=== PATIENT | male | born 1990 | race Caucasian/White ===

== ENCOUNTER 2017-07-19 15:49 | Inpatient (IN) ==
[2017-07-19] MEDS ORDERED: NS 1,000 ML IV ONE ×2 (16:09→20:15)
[2017-07-19 16:17] LABS: MANUAL DIFF NEEDED? NO
[2017-07-19 16:23] LABS: BASO% 0.5 % (0.0-0.8); EOS% 2.3 % (0.0-10.0); HEMATOCRIT 45.2 % (42.0-52.0); HEMOGLOBIN 16.2 g/dL (14.0-18.0); IMM GRAN# 0.07 X1000 (0.0-0.04); IMM GRAN% 0.5 % (0.0-0.5); LYMPH# 2.47 X1000 (1.2-3.4); LYMPH% 18.6 % (20.5-51.1); MCHC 35.8 g/dL (33-37); MCV 92.1 FL (81-99); MONO# 1.28 X1000 (0.11-0.59); MONO% 9.7 % (1.7-9.3); MPV 11.4 FL (7.4-10.4); NEUT% 68.4 % (42.2-75.2); PLT 244 X1000 (130-400); RBC 4.91 XMIL (4.7-6.1)
[2017-07-19 16:45] LABS: AGAP 17; ALBUMIN 4.4 g/dL (3.5-5.0); ALKALINE PHOSPHATASE 96 U/L (32-122); BUN 13 mg/dL (8-22); CHLORIDE 101 mmol/L (98-107); COSMO 280; GOT 24 U/L (10-34); GPT 32 U/L (10-44); POTASSIUM 3.2 mmol/L (3.5-5.1); SODIUM 140 mmol/L (136-145); TCO2 22 mmol/L (25-35); TOTAL BILIRUBIN 1.46 mg/dL (0.20-1.00); TOTAL PROTEIN 6.9 g/dL (6.3-8.3)
[2017-07-19 16:46] LABS: ACETAMINOPHEN < 1.2 ug/mL (10-30)
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
[2017-07-19] MEDS ORDERED: NARCAN IV ONE (17:20)
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
[2017-07-19 18:22] LABS: BILIRUBIN URINE NEGATIVE (NEGATIVE); BLOOD URINE NEGATIVE (NEGATIVE); COLOR YELLOW; GLUCOSE URINE NEGATIVE (NEGATIVE); LEUKOCYTES URINE NEGATIVE (NEGATIVE); NITRITE URINE NEGATIVE (NEGATIVE); PROTEIN URINE 30 mg/dL (NEGATIVE); SP GRAVITY URINE 1.024; TURBIDITY URINE CLEAR (CLEAR); URINE CULTURE NEEDED? NO; URINE MICRO REVIEW NEEDED? NO; URINE SOURCE CLEAN CATCH; UROBILINOGEN URINE 4 mg/dL (NORMAL)
[2017-07-19 18:24] LABS: UR EPITHELIAL CELLS <10 /HPF (<10); URINE BACTERIA NEGATIVE /HPF; URINE RBC <10 /HPF (<10); URINE WBC <10 /HPF (<10)
[2017-07-19 18:51] LABS: UR AMPHETAMINES MT PRESUMPTIVE POS (NONE DETECT); UR BENZODIAZ MT PRESUMPTIVE POS (NONE DETECT); UR CANNABIS MEDTOX PRESUMPTIVE POS (NONE DETECT)
[2017-07-19 18:52] LABS: UR BARBITUATES MT NONE DETECTED (NONE DETECT); UR COCAINE MT NONE DETECTED (NONE DETECT); UR METHADONE MEDTOX NONE DETECTED (NONE DETECT); UR OPIATES MT NONE DETECTED (NONE DETECT); UR OXYCODONE MEDTOX NONE DETECTED (NONE DETECT); UR PCP MEDTOX NONE DETECTED (NONE DETECT)
[2017-07-19] MEDS ORDERED: ZOFRAN IV PRN (20:15)
[2017-07-19] MEDS ORDERED: TYLENOL PO PRN (20:15)
[2017-07-19] MEDS ORDERED: HALDOL IV PRN (20:57)
[2017-07-19] MEDS ORDERED: TORADOL IV PRN (20:59)
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
[2017-07-19] MEDS: POTASSIUM CHLORIDE 20 MEQ/SWI 20 MEQ/100 ML IVPB IV SCH (22:04)
[2017-07-20] MEDS: POTASSIUM CHLORIDE 20 MEQ/SWI 20 MEQ/100 ML IVPB IV SCH (00:30)
[2017-07-20 05:15] LABS: HEMOGLOBIN 15.8 g/dL (14.0-18.0); MCH 33.4 PG (27-31); MCHC 34.3 g/dL (33-37); MCV 97.3 FL (81-99); MPV 11.3 FL (7.4-10.4); RBC 4.73 XMIL (4.7-6.1)
[2017-07-20 06:29] LABS: AGAP 13; BUN 12 mg/dL (8-22); CALCIUM 8.5 mg/dL (8.8-10.2); CHLORIDE 105 mmol/L (98-107); COSMO 276; POTASSIUM 4.4 mmol/L (3.5-5.1); SODIUM 139 mmol/L (136-145); TCO2 21 mmol/L (25-35)
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
[2017-07-20 16:54] VITALS: BP 137/80
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
== END 2017-07-20 17:30 | disposition home or self-care (01) ==
LOC: ED 15:49 → SUATTDRO 19:45 → ICU 19:45
PROVIDERS: ATTEND Emergency Medicine